=== PATIENT | male | born 1985 | race African-American/Black ===

== ENCOUNTER 2019-12-09 13:03 | Emergency (ER) | payer MEDICAID, OTHER ==
[~2019-12-09] VITALS: Ht 175.3 cm; Wt 91.0 kg
[2019-12-09 16:13] LABS: CHLORIDE 103 mEq/L (98-107)
[2019-12-09 16:18] LABS: BASOPHILS % 0.3 % (0.0-2.0); EOSINOPHILS % 1.5 % (0.0-5.0); HEMATOCRIT. 41.7 % (42.0-52.0); HEMOGLOBIN. 14.2 g/dL (14.0-18.0); LYMPHOCYTES % 28.3 % (20.0-50.0); MEAN CORPUSCULAR HEMOGLOBIN 28.2 pg (28.0-32.0); MEAN CORPUSCULAR VOLUME 82.9 fL (80.0-94.0); MEAN PLATELET VOLUME 9.5 fl (7.4-10.4); MONOCYTES % 11.4 % (2.0-8.0); NEUTROPHILS % 58.5 % (40.0-76.0); PLATELET 212 x1000/uL (130-400); RED BLOOD CELL COUNT 5.03 mill/uL (4.7-6.1); RED CELL DISTRIBUTION WIDTH 15.7 % (11.6-14.6)
[2019-12-09] MEDS ORDERED: MAGNESIUM/ALUMINUM HYDROXIDE/SIMETHICONE 30ML UDC PO STA (17:43)
[2019-12-09] MEDS ORDERED: VISCOUS LIDOCAINE 2% 15 ML UDC PO STA (17:43)
[2019-12-09] MEDS ORDERED: DICYCLOMINE 10 MG/5 ML ORAL SYR PO STA (17:43)
[2019-12-09 18:30] VITALS: BP 133/80
== END 2019-12-09 18:38 | disposition home or self-care (01) ==
LOC: ER 13:03
DX: R10.33 Periumbilical pain (principal)
CPT/HCPCS: 36415; 74018; 80053; 85025; 99284

== ENCOUNTER 2020-07-28 07:51 | Emergency (ER) | payer MEDICAID, OTHER ==
[~2020-07-28] VITALS: Ht 177.8 cm; Wt 100.0 kg
[2020-07-28 08:08] VITALS: BP 124/66
[2020-07-28] MEDS ORDERED: METHOCARBAMOL 500MG TABLET PO ONE (09:15)
[2020-07-28] MEDS ORDERED: KETOROLAC 30MG/ML VIAL IM ONE (09:15)
== END 2020-07-28 09:30 | disposition home or self-care (01) ==
LOC: ER 08:22
DX: S16.1XXA Strain of muscle, fascia and tendon at neck level, initial encounter (principal); W18.39XA Other fall on same level, initial encounter; Y93.89 Activity, other specified; Y92.89 Other specified places as the place of occurrence of the external cause; Y99.8 Other external cause status
CPT/HCPCS: 96372; 99283; J1885

== ENCOUNTER 2020-08-19 09:04 | Emergency (ER) | payer OTHER ==
[~2020-08-19] VITALS: Ht 172.7 cm; Wt 100.0 kg
[2020-08-19] MEDS ORDERED: KETOROLAC 30MG/ML VIAL IV STA (09:46)
[2020-08-19] MEDS ORDERED: ONDANSETRON HCL 4MG/2ML INJ IV STA (09:46)
[2020-08-19] MEDS ORDERED: SODIUM CHLORIDE 0.9% 1,000 ML IV ONE (10:00)
[2020-08-19 10:28] LABS: CHLORIDE 110 mEq/L (98-107)
[2020-08-19 10:34] LABS: BASOPHILS % 0.5 % (0.0-2.0); EOSINOPHILS % 3.5 % (0.0-5.0); HEMATOCRIT. 42.1 % (42.0-52.0); HEMOGLOBIN. 13.7 g/dL (14.0-18.0); LYMPHOCYTES % 36.8 % (20.0-50.0); MEAN CORPUSCULAR HEMOGLOBIN 28.2 pg (28.0-32.0); MEAN CORPUSCULAR VOLUME 86.6 fL (80.0-94.0); MEAN PLATELET VOLUME 9.4 fl (7.4-10.4); MONOCYTES % 7.9 % (2.0-8.0); NEUTROPHILS % 51.3 % (40.0-76.0); PLATELET 210 x1000/uL (130-400); RED BLOOD CELL COUNT 4.87 mill/uL (4.7-6.1); RED CELL DISTRIBUTION WIDTH 15.3 % (11.6-14.6)
[2020-08-19 10:36] LABS: PROTHROMBIN TIME 10.6 sec (9.6-11.0)
[2020-08-19 11:00] VITALS: BP 134/86
== END 2020-08-19 12:09 | disposition home or self-care (01) ==
LOC: ER 09:04
DX: R10.33 Periumbilical pain (principal)
CPT/HCPCS: 36415; 80053; 83690; 85025; 85610; 93005; 96374; 96375; 99284; J1885; J2405; J7030

== ENCOUNTER 2021-03-17 14:43 | Emergency (ER) | payer MEDICAID, OTHER ==
[~2021-03-17] VITALS: Ht 175.3 cm; Wt 90.0 kg
[2021-03-17 16:14] VITALS: BP 121/79
== END 2021-03-17 16:25 | disposition home or self-care (01) ==
LOC: ER 16:03
DX: R21 Rash and other nonspecific skin eruption (principal)
CPT/HCPCS: 99281

== ENCOUNTER 2021-04-24 19:33 | Emergency (ER) | payer MEDICAID, OTHER ==
[~2021-04-24] VITALS: Ht 175.3 cm; Wt 102.0 kg
[2021-04-24] MEDS ORDERED: ACETAMINOPHEN 325MG TABLET PO STA (20:47)
[2021-04-24] MEDS ORDERED: SODIUM CHLORIDE 0.9% 1,000 ML IV ONE (21:00)
[2021-04-24 21:28] LABS: BASOPHILS % 0.6 % (0.0-2.0); EOSINOPHILS % 5.5 % (0.0-5.0); HEMATOCRIT. 40.9 % (42.0-52.0); HEMOGLOBIN. 13.7 g/dL (14.0-18.0); LYMPHOCYTES % 47.5 % (20.0-50.0); MEAN CORPUSCULAR HEMOGLOBIN 27.8 pg (28.0-32.0); MEAN CORPUSCULAR VOLUME 82.8 fL (80.0-94.0); MEAN PLATELET VOLUME 8.9 fl (7.4-10.4); MONOCYTES % 10.9 % (2.0-8.0); NEUTROPHILS % 35.5 % (40.0-76.0); PLATELET 208 x1000/uL (130-400); RED BLOOD CELL COUNT 4.93 mill/uL (4.7-6.1); RED CELL DISTRIBUTION WIDTH 16.8 % (11.6-14.6)
[2021-04-24 21:36] LABS: CHLORIDE 106 mEq/L (98-107)
[2021-04-24 22:14] LABS: CLARITY URINE CLEAR (CLEAR); COLOR URINE YELLOW (YELLOW); KETONES URINE NEGATIVE (NEGATIVE); LEUKOCYTE ESTERASE URINE NEGATIVE (NEGATIVE); NITRITE URINE NEGATIVE (NEGATIVE); OCCULT BLOOD URINE NEGATIVE (NEGATIVE); PROTEIN URINE NEGATIVE (NEGATIVE); SPECIFIC GRAVITY URINE 1.018 (1.005-1.030); UROBILINOGEN URINE 0.2 E.U./dL (0.2-1.0)
[2021-04-24] MEDS ORDERED: ONDA4TAB5 MT (23:45)
[2021-04-24] MEDS ORDERED: IBUP-2029 MT (23:45)
[2021-04-24 23:57] VITALS: BP 118/74
== END 2021-04-25 00:08 | disposition home or self-care (01) ==
LOC: ER 19:47
DX: B34.9 Viral infection, unspecified (principal); Z20.822 Contact with and (suspected) exposure to COVID-19
CPT/HCPCS: 36415; 71045; 80053; 81003; 85025; 96360; 99284; C9803; J7030; U0003; U0005; Z7610

== ENCOUNTER 2023-07-25 20:04 | Emergency (ER) | payer MEDICAID, OTHER ==
[~2023-07-25] VITALS: Ht 175.3 cm; Wt 90.0 kg
[~2023-07-25 20:04] MED LIST: IBUP-2029 MT; ONDA4TAB5 MT
[2023-07-25 20:06] VITALS: PULSE 89; RESP 16
[2023-07-25 20:17] VITALS: BP 132/87; TEMP 98.1; O2SAT 98
[2023-07-25] MEDS ORDERED: GUAI-450 MT (21:20)
[2023-07-25] MEDS ORDERED: IBUP-2029 MT (21:20)
== END 2023-07-25 22:34 | disposition home or self-care (01) ==
LOC: ER 20:04
DX: J06.9 Acute upper respiratory infection, unspecified (principal)
CPT/HCPCS: 71045; 99283

== ENCOUNTER 2024-01-04 10:33 | Emergency (ER) | payer OTHER ==
[~2024-01-04] VITALS: Ht 175.3 cm; Wt 90.0 kg
[~2024-01-04 10:33] MED LIST changes: +GUAI-450 MT
[2024-01-04 11:01] VITALS: BP 125/83; PULSE 64; RESP 18; TEMP 98.1; O2SAT 99
[2024-01-04 11:25] LABS: BASOPHILS % 0.7 % (0.0-2.0); EOSINOPHILS % 2.9 % (0.0-5.0); HEMATOCRIT. 41.6 % (42.0-52.0); HEMOGLOBIN. 13.8 g/dL (14.0-18.0); LYMPHOCYTES % 32.8 % (20.0-50.0); MEAN CORPUSCULAR HEMOGLOBIN 27.6 pg (28.0-32.0); MEAN CORPUSCULAR VOLUME 83.7 fL (80.0-94.0); MEAN PLATELET VOLUME 8.9 fl (7.4-10.4); MONOCYTES % 7.8 % (2.0-8.0); NEUTROPHILS % 55.8 % (40.0-76.0); PLATELET 230 x1000/uL (130-400); RED BLOOD CELL COUNT 4.98 mill/uL (4.7-6.1); RED CELL DISTRIBUTION WIDTH 16.2 % (11.6-14.6); WHITE BLOOD COUNT 6.5 x1000/uL (4.5-11.0)
[2024-01-04 11:40] LABS: CLARITY URINE CLEAR (CLEAR); COLOR URINE YELLOW (YELLOW); GLUCOSE URINE NEGATIVE (NEGATIVE); KETONES URINE NEGATIVE (NEGATIVE); LEUKOCYTE ESTERASE URINE NEGATIVE (NEGATIVE); NITRITE URINE NEGATIVE (NEGATIVE); OCCULT BLOOD URINE NEGATIVE (NEGATIVE); PROTEIN URINE 1+ (NEGATIVE); SPECIFIC GRAVITY URINE 1.028 (1.005-1.030)
[2024-01-04 11:45] LABS: ALANINE AMINOTRANSFERASE 16 IU/L (10-49); ALBUMIN 4.5 g/dL (3.2-4.8); ASPARTATE AMINOTRANSFERASE 19 IU/L (<34); BILIRUBIN TOTAL 0.8 mg/dL (0.1-1.0); CARBON DIOXIDE 28 mEq/L (21-32); CHLORIDE 106 mEq/L (98-107); CREATININE 0.9 mg/dL (0.6-1.3); GLUCOSE 101 mg/dL (70-105); PROTEIN TOTAL 7.7 g/dL (6.0-8.3); SODIUM 139 mEq/L (136-145); UREA NITROGEN BLOOD 8 mg/dL (9-23)
[2024-01-04 12:10] LABS: RBC URINE NONE SEEN /hpf (0-2); SQUAMOUS EPITHELIAL CELL URINE NONE SEEN /lpf (RARE/1+); WBC URINE 0-2 /hpf (0-2); YEAST URINE NONE SEEN
[2024-01-04 12:18] LABS: BACTERIA URINE FEW
[2024-01-04 12:21] LABS: TROPONIN I HIGH SENSITIVITY < 4 ng/L (3.0-53)
[2024-01-04] MEDS ORDERED: MECL-299 MT (12:24)
== END 2024-01-04 12:37 | disposition home or self-care (01) ==
LOC: ER 10:33
DX: H81.10 Benign paroxysmal vertigo, unspecified ear (principal)
CPT/HCPCS: 36415; 80053; 81003; 84484; 85025; 93005; 99284

== ENCOUNTER 2024-06-18 17:44 | Emergency (ER) | payer OTHER ==
[~2024-06-18] VITALS: Ht 175.3 cm; Wt 91.0 kg
[~2024-06-18 17:44] MED LIST changes: +MECL-299 MT
[2024-06-18 17:47] VITALS: BP 144/95; PULSE 65; RESP 20; TEMP 98.3; O2SAT 98
[2024-06-18] MEDS ORDERED: LIDOCAINE HCL 1% 20ML VIAL INFIL ONE (18:45)
[2024-06-18] MEDS: LIDOCAINE HCL 1% 20ML VIAL INFIL NR (21:04)
== END 2024-06-18 21:29 | disposition home or self-care (01) ==
LOC: ER 17:44
DX: D17.1 Benign lipomatous neoplasm of skin and subcutaneous tissue of trunk (principal); Z79.899 Other long term (current) drug therapy
CPT/HCPCS: 10060; 99282; J3490; Z7610 ×4

== ENCOUNTER 2024-10-24 18:01 | Emergency (ER) | payer OTHER ==
[~2024-10-24] VITALS: Ht 180.3 cm; Wt 90.0 kg
[2024-10-24 18:48] VITALS: O2SAT 97
[2024-10-24] MEDS ORDERED: NAPR-681 PO (21:36)
[2024-10-24] MEDS: IBUPROFEN 600MG TABLET PO NR (21:53)
[2024-10-24 22:10] VITALS: BP 132/69; PULSE 75; RESP 16; TEMP 37.00296; O2SAT 99
== END 2024-10-24 22:10 | disposition home or self-care (01) ==
LOC: ER 18:01
DX: M25.512 Pain in left shoulder (principal); M79.645 Pain in left finger(s); M25.531 Pain in right wrist; W18.30XA Fall on same level, unspecified, initial encounter; Y93.89 Activity, other specified; Y92.89 Other specified places as the place of occurrence of the external cause; Y99.8 Other external cause status
CPT/HCPCS: 73030; 73110; 73140; 99284

== ENCOUNTER 2025-02-27 16:59 | Emergency (ER) | payer OTHER ==
[~2025-02-27] VITALS: Ht 165.1 cm; Wt 91.0 kg
[~2025-02-27 16:59] MED LIST changes: +NAPR-681 PO
[2025-02-27 17:03] VITALS: O2SAT 99
[2025-02-27 18:46] LABS: BASOPHILS % 0.9 % (0.0-2.0); EOSINOPHILS % 3.4 % (0.0-5.0); HEMATOCRIT. 43.4 % (42.0-52.0); HEMOGLOBIN. 14.2 g/dL (14.0-18.0); LYMPHOCYTES % 46.5 % (20.0-50.0); MEAN CORPUSCULAR HGB CONC 32.8 g/dL (31.0-37.0); MEAN CORPUSCULAR VOLUME 85.5 fL (80.0-94.0); MEAN PLATELET VOLUME 9.2 fl (7.4-10.4); MONOCYTES % 8.5 % (2.0-8.0); NEUTROPHILS % 40.7 % (40.0-76.0); PLATELET 211 x1000/uL (130-400); RED BLOOD CELL COUNT 5.07 mill/uL (4.7-6.1); RED CELL DISTRIBUTION WIDTH 15.8 % (11.6-14.6); WHITE BLOOD COUNT 8.4 x1000/uL (4.5-11.0)
[2025-02-27 19:00] LABS: CHLORIDE 107 mEq/L (98-107); POTASSIUM 3.8 mEq/L (3.5-5.1); SODIUM 140 mEq/L (136-145)
[2025-02-27 19:01] LABS: CARBON DIOXIDE 26 mEq/L (21-32)
[2025-02-27 19:02] LABS: CALCIUM 9.3 mg/dL (8.7-10.4)
[2025-02-27 19:07] LABS: GLUCOSE 104 mg/dL (70-105); UREA NITROGEN BLOOD 9 mg/dL (9-23)
[2025-02-27 22:45] VITALS: BP 135/95; PULSE 74; RESP 18; TEMP 36.8; O2SAT 99
== END 2025-02-27 22:49 | disposition home or self-care (01) ==
LOC: ER 16:59
DX: R42 Dizziness and giddiness (principal); F10.90 Alcohol use, unspecified, uncomplicated; Y90.9 Presence of alcohol in blood, level not specified
CPT/HCPCS: 36415; 80048; 85025; 93005; 99284

== ENCOUNTER 2025-03-29 15:21 | Emergency (ER) | payer OTHER ==
[~2025-03-29] VITALS: Ht 175.3 cm; Wt 91.0 kg
[2025-03-29 15:30] VITALS: O2SAT 98
[2025-03-29 18:08] LABS: BASOPHILS % 0.9 % (0.0-2.0); EOSINOPHILS % 3.7 % (0.0-5.0); HEMATOCRIT. 42.8 % (42.0-52.0); HEMOGLOBIN. 14.2 g/dL (14.0-18.0); LYMPHOCYTES % 46.7 % (20.0-50.0); MEAN CORPUSCULAR HEMOGLOBIN 28.1 pg (28.0-32.0); MEAN CORPUSCULAR HGB CONC 33.1 g/dL (31.0-37.0); MEAN PLATELET VOLUME 9.6 fl (7.4-10.4); MONOCYTES % 7.5 % (2.0-8.0); NEUTROPHILS % 41.2 % (40.0-76.0); PLATELET 202 x1000/uL (130-400); RED BLOOD CELL COUNT 5.04 mill/uL (4.7-6.1); RED CELL DISTRIBUTION WIDTH 15.8 % (11.6-14.6)
[2025-03-29 18:14] LABS: CHLORIDE 109 mEq/L (98-107); POTASSIUM 3.7 mEq/L (3.5-5.1); SODIUM 143 mEq/L (136-145)
[2025-03-29 18:17] LABS: CALCIUM 9.4 mg/dL (8.7-10.4); CARBON DIOXIDE 26 mEq/L (21-32)
[2025-03-29 18:22] LABS: GLUCOSE 103 mg/dL (70-105); UREA NITROGEN BLOOD 10 mg/dL (9-23)
[2025-03-29 18:24] LABS: ALANINE AMINOTRANSFERASE 15 IU/L (10-49); ALBUMIN 4.4 g/dL (3.2-4.8); ASPARTATE AMINOTRANSFERASE 16 IU/L (<34); BILIRUBIN DIRECT 0.2 mg/dL (<=3.0); BILIRUBIN TOTAL 0.5 mg/dL (0.1-1.0)
[2025-03-29 19:23] VITALS: BP 133/93; PULSE 70; RESP 14; TEMP 36.7; O2SAT 100
== END 2025-03-29 19:25 | disposition home or self-care (01) ==
LOC: ER 15:21
DX: M79.89 Other specified soft tissue disorders (principal); Z79.899 Other long term (current) drug therapy
CPT/HCPCS: 36415; 80048; 80076; 83880; 85025; 93005; 93970; 99284

== ENCOUNTER 2025-05-02 10:36 | Emergency (ER) | payer OTHER ==
[~2025-05-02] VITALS: Ht 175.3 cm; Wt 91.0 kg
[2025-05-02 10:44] VITALS: TEMP 36.7; O2SAT 99
[2025-05-02] MEDS: KETOROLAC 15MG/ML VIAL IM ONE (11:31)
[2025-05-02] MEDS: LIDOCAINE 5% PATCH TOP SCH (11:31)
[2025-05-02] MEDS ORDERED: IBUP-2029 MT (11:32)
[2025-05-02] MEDS ORDERED: CYCL10TA21 MT (11:32)
[2025-05-02] MEDS ORDERED: LIDO-53 TP (11:32)
[2025-05-02 11:42] VITALS: BP 145/98; PULSE 63; RESP 18; O2SAT 100
== END 2025-05-02 11:43 | disposition home or self-care (01) ==
LOC: ER 10:36
DX: S16.1XXA Strain of muscle, fascia and tendon at neck level, initial encounter (principal); Z79.899 Other long term (current) drug therapy; X58.XXXA Exposure to other specified factors, initial encounter; Y93.89 Activity, other specified; Y92.89 Other specified places as the place of occurrence of the external cause; Y99.8 Other external cause status
CPT/HCPCS: 99283; 96372; J1885

== ENCOUNTER 2025-09-05 19:52 | Emergency (ER) | payer OTHER ==
[~2025-09-05] VITALS: Ht 175.3 cm; Wt 91.0 kg
[~2025-09-05 19:52] MED LIST changes: +CYCL10TA21 MT; +IBUP-1455 MT; -IBUP-2029 MT; +LIDO-53 TP
[2025-09-05 19:55] VITALS: O2SAT 98
[2025-09-05 20:59] LABS: BASOPHILS % 0.6 % (0.0-2.0); EOSINOPHILS % 2.9 % (0.0-5.0); HEMATOCRIT. 44.8 % (42.0-52.0); HEMOGLOBIN. 14.4 g/dL (14.0-18.0); LYMPHOCYTES % 40.2 % (20.0-50.0); MEAN PLATELET VOLUME 9.3 fl (7.4-10.4); MONOCYTES % 7.0 % (2.0-8.0); NEUTROPHILS % 49.3 % (40.0-76.0); PLATELET 217 x1000/uL (130-400); RED BLOOD CELL COUNT 5.25 mill/uL (4.7-6.1); RED CELL DISTRIBUTION WIDTH 15.7 % (11.6-14.6)
[2025-09-05] MEDS: SODIUM CHLORIDE 0.9% 1,000 ML IV ONE (20:59)
[2025-09-05] MEDS: ONDANSETRON HCL 4MG/2ML INJ IV ONE (20:59)
[2025-09-05 21:14] VITALS: BP 143/98; PULSE 63; RESP 18; TEMP 36.9; O2SAT 98
[2025-09-05 21:14] LABS: CREATININE 1.0 mg/dL (0.6-1.3); UREA NITROGEN BLOOD 8 mg/dL (9-23)
[2025-09-05 21:16] LABS: ASPARTATE AMINOTRANSFERASE 18 IU/L (<34); BILIRUBIN DIRECT 0.2 mg/dL (<=3.0); BILIRUBIN TOTAL 0.6 mg/dL (0.1-1.0); PROTEIN TOTAL 8.0 g/dL (6.0-8.3)
[2025-09-05] MEDS ORDERED: ONDA-239 PO (21:20)
[2025-09-05 21:35] LABS: CLARITY URINE CLEAR (CLEAR); COLOR URINE YELLOW (YELLOW); GLUCOSE URINE NEGATIVE (NEGATIVE); KETONES URINE NEGATIVE (NEGATIVE); LEUKOCYTE ESTERASE URINE NEGATIVE (NEGATIVE); NITRITE URINE NEGATIVE (NEGATIVE); OCCULT BLOOD URINE NEGATIVE (NEGATIVE); PH URINE 6.0 (4.5-8.0); PROTEIN URINE TRACE (NEGATIVE); SPECIFIC GRAVITY URINE 1.030 (1.005-1.030); UROBILINOGEN URINE 1.0 E.U./dL (0.2-1.0)
[2025-09-05 21:49] LABS: BACTERIA URINE TRACE; RBC URINE 0-2 /hpf (0-2); SQUAMOUS EPITHELIAL CELL URINE 1+ /lpf (RARE/1+); WBC URINE 0-2 /hpf (0-2)
[2025-09-05 21:51] LABS: *AMPHETAMINES SCREEN URINE NEGATIVE (NEGATIVE); *BARBITURATES SCREEN URINE NEGATIVE (NEGATIVE); *BENZODIAZEPINES SCREEN URINE NEGATIVE (NEGATIVE); *COCAINE SCREEN URINE NEGATIVE (NEGATIVE); CANNABINOID URINE SCREEN NEGATIVE (NEGATIVE); METHADONE URINE SCREEN NEGATIVE (NEGATIVE); OPIATES URINE SCREEN NEGATIVE (NEGATIVE); PHENCYCLIDINE URINE SCREEN NEGATIVE (NEGATIVE)
[2025-09-05 21:52] LABS: ECSTASY MDMA SCREEN URINE NEGATIVE (NEGATIVE)
== END 2025-09-05 21:34 | disposition home or self-care (01) ==
LOC: ER 19:52 → CMPBEDREQ 09-06 07:22
DX: R11.10 Vomiting, unspecified (principal); Z79.899 Other long term (current) drug therapy
CPT/HCPCS: 80076; 80305; 80048; 81003; 80320; 83690; 83735; 85025; 36415; 96361; 96374; 99283; J2405; J7030; Z7610 ×2; G0480